=== PATIENT | female | born 1965 | race Caucasian/White ===

== ENCOUNTER 2016-12-05 06:05 | Day surgery (SDC) | payer OTHER ==
[2016-12-05] VITALS (12 sets, daily range): BP systolic 121–163; BP diastolic 74–97; PULSE 59–74; RESP 9–16; O2SAT 94–100
[~2016-12-05] VITALS: Ht 154.9 cm; Wt 64.3 kg
[~2016-12-05 06:05] MED LIST: ACET325C PO; BACITRACIN IRRIGATION ONE; CEFAZOLIN IRRIGATION ONE; CHOL500050 PO; CeFAZolin 2 Gm/50 mL D5W IV Premix IV ONE; DOCU250C2 PO; GENTAMICIN IRRIGATION ONE; LOSA25TA21 PO; MEDR10TA9 PO; NICO1PAT40 TD; OXYC1TAB24 PO; [UNRECOGNIZED DRUG - OTHER] IRRIGATION ONE
[2016-12-05] MEDS ORDERED: HYDROmorphone 2 mg/mL Inj ONE (06:06)
[2016-12-05] MEDS ORDERED: EPHEDrine/NS 5 mg/mL 5 mL Syringe ONE (06:06)
[2016-12-05] MEDS ORDERED: Dexamethasone 4 mg/mL Inj ONE (06:06)
[2016-12-05] MEDS ORDERED: Phenylephrine/NS-PF 100 mCg/mL 5 mL Syringe IVPUSH ONE (06:06)
[2016-12-05] MEDS ORDERED: Propofol 10,000 mCg/mL 20 mL Inj ONE (06:06)
[2016-12-05] MEDS ORDERED: Ondansetron 2 mg/mL 2 mL Inj ONE (06:06)
[2016-12-05] MEDS: Lactated Ringer's 1,000 ML IV SCH ×2 (06:15→08:33)
[2016-12-05] MEDS ORDERED: CeFAZolin Inj 2 gm / 50mL D5W IV ONE (06:36)
[2016-12-05] MEDS ORDERED: NAPR220C11 PO (06:59)
[2016-12-05] MEDS ORDERED: Lactated Ringer's 500 ML IV PRN (07:21)
[2016-12-05] MEDS ORDERED: Lactated Ringer's 1,000 ML IV SCH (07:21)
--- NOTE | 2016-12-05 07:21 | PCM.HPANE ---
Patient Data Date of Service: Dec 05, 2016 Surgeon Admitting Provider: Attending Provider:Ney Frazier MD Primary Care Physician:Sangeetha Fields MD Other Provider:Hank Velasquez Anesthesia Reason for Visit Phx Bilateral Breast Cancer Ht/WT & BMI Height (Feet): 5 Height (Inches): 1.00 Weight (Kilograms): 64.300 Body Mass Index 26.00 Allergies Coded Allergies: No Known Allergies (Verified Allergy, Unknown, 12/04/16) Past Anesthesia History Anesthesia History: Denies:: Anesthesia Reactions, Malignant Hyperthermia Diabetes History Hx Diabetes?: No MRSA MRSA: No Medications Hypertension Medication: Yes (LOSARTAN) Home Meds Incl Beta Yasemin: No Reported Medications Naproxen Sodium (Aleve)220 Mg [id number] Mg PO 12/05/16 oxyCODONE-Acetaminophen 5-325 mg 1 Each Tablet1 Tab PO Q6H PRN For Pain Ref 0 12/04/16 Nicotine (Nicoderm Cq 14 mg/24 hr)1 Each Patch.td241 Each TD DAILY 14 Days Ref 0 12/04/16 Cholecalciferol (Vitamin D3) (Vitamin D3)50,000 Unit Thuzvcb67,000 Unit PO WEEKLY 12/04/16 Discontinued Reported Medications Medroxyprogesterone 10 Mg Joyyzt80 Mg PO DAILY 12/04/16 Docusate Sodium 250 Mg Nhxntqi958 Mg PO DAILY PRN For Constipation Ref 0 12/04/16 Acetaminophen 325 Mg [id number] Mg PO Q4H PRN PRN 12/04/16 Losartan Potassium 25 Mg Yeqhjh51 Mg PO DAILY 07/16/16 Ergocalciferol (Vitamin D2) (Drisdol)50,000 Unit Wdbuoiq34,000 Unit PO Q7D 07/16/16 History History of ENT Problems?: No HEENT History: Denies:: Sinus Problem Other HEENT Pertinent History: S/P RPR NASAL LACERATION Hx of Heart Problems?: No Cardiovascular History: Denies:: Chest Pain Heart Murmur Irregular Heartbeat (PT REPORTS PALPITATIONS) Pacemaker Rheumatic Fever Thrombophlebitis Valvular Heart Disease Hx of Respiratory Problem?: No Respiratory History: Denies:: COPD Chest Surgery (RLL NODULE-STABLE) Dyspnea Emphysema Hemoptysis Pneumonia (HX BRONCHITIS) Tuberculosis Use of C-PAP Machine Hx Neurologic Problems?: Yes Neurological History: Positive for:: Headaches Denies:: Alzheimer's Disease CVA Dementia Dizziness Seizures Hx of GI Problems?: No Gastrointestinal History: Denies:: Cirrhosis Diverticulitis Gastroesphageal Reflux Heartburn Hepatitis (EXPOISURE TO HEP B (IMMUNITY)) Liver Disease (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 (HX MACROMASTIA S/P B/L BREAST BX'S,MASTECTOMY/RECONSTRUCTION -CA) Denies:: Currently ( HX MISSED AB) Endometriosis (THICKENED ENDOMETRIUM) Pelvic Inflammatory Skin History: Positive for:: History Skin Disorders? (SKIN RASHES,NAIL FUNGUS) Denies:: Pressure Ulcers Hx Musculoskeletal Problems?: Yes Musculoskeletal History: Positive for:: Musculoskeletal Trauma (HX LT ANKLE SPRAIN) Denies:: Back Injury (C/OF BACK PAIN) Joint Replacement Hx of Psycho/Social Problems?: Yes Psycho Social History: Positive for:: Anxiety Denies:: Bipolar Disorder Hx Depression Hx Surgeries?: Yes (BILAT BREAST BX'S,BILAT MASTECTOMY W/ RECONSTRUCTION,PAULETTE/ BSO) Hx Any Other Health Problems?: Yes Other History: Positive for:: Cancer (LT BREAST) Denies:: Endocrine Disease Hospitalization Thyroid Disease History Blood Transfusions: Denies:: Blood Transfusions Hx Diabetes: No Other Pertinent History: CASTLEMAN'S DISEASE Hx Alcohol Use: YesHx Substance Use: No Smoking Status: Current Every Day Smoker Have You Smoked inLast 12 mo: Yes (QUIT RECENTLY)Approx How Many Cigarettes/day : 3 C/DAY X 35YRS Stop/Bang S-Snoring: Do You Snore Loudly: No T-Tired: feel tired, fatigued: Yes O-Obsered: Observed not breath: No P-Blood Pressure: treated: No B- Body Mass Index > 35 kg/m2: No A- Age over 50: Yes N- Neck Large Circumference: No G- Gender Male: No JAMESON Total Score: 3 JAMESON Risk Assessment: Low Risk, <3 Yes Risk Assessment Category Category 1A: Patient has history of documented sleep apnea, and HAS NOT received any narcotic, sedative or anesthesia administration during this stay. Category 1B: Patient has history of documented sleep apnea, and HAS received any narcotic , sedative or anesthesia administration during this stay Category 2: Patient has SUSPECTED Obstructive Sleep Apnea, and HAS received any narcotic , sedative or anesthesia administration during this stay. Category 3: Patient has SUSPECTED Obstructive Sleep Apnea and HAS NOT received narcotic, sedative or anesthesia administration during this stay. Category 4: Outpatient in Procedural Areas with known sleep apnea or who screen positive for High Risk via the STOP/BANG questionnaire. Exam Exam Vital Signs Vital Signs Date Time Temp Pulse Resp B/P Pulse Ox O2 Delivery O2 Flow Rate FiO2 12/05/16 06:37 36 65 12 121/80 97 Room Air General Appearance: Alert HEENT/AIRWAY: MP 2 Lungs: Clear to Auscultation Heart: Exam Unremarkable Meds/Labs/Diagnostics Admission Meds Current Medications Lactated Ringer's (Lr) 1,000 ml @ 120 mls/hr Q8H20M IV Last administered on t 06:15; Start 12/05/16 at 05:00; Stop 12/05/16 at 13:19 Plan Impression Patient chart reviewed, patient interviewed and anesthestic plan with risks, benefits, and alternatives discussed, and informed consent obtained. NPO Status: WATER AT 2AM ASA Physical Status: ASA2 Mod Systemic Disease Anesthetic Plan: GA Bene/Risks/Altern/Consents: Yes HP Complete Prior to Induction: Yes Jordi Gallagher MD Dec 05, 2016 07:21
[2016-12-05] MEDS ORDERED: MetoCLOpramide 5 mg/mL 2 mL Inj IVPUSH PRN (07:25)
[2016-12-05] MEDS ORDERED: Dexamethasone 4 mg/mL Inj IVPUSH PRN (07:25)
[2016-12-05] MEDS ORDERED: fentaNYL-PF 50 mCg/mL 2 mL Inj IVPUSH PRN (07:25)
[2016-12-05] MEDS ORDERED: EPHEDrine Sulfate 50 mg/mL Inj IVPUSH PRN (07:25)
[2016-12-05] MEDS ORDERED: Ondansetron 2 mg/mL 2 mL Inj IVPUSH PRN (07:25)
[2016-12-05] MEDS ORDERED: Phenylephrine 10,000 mCg/mL Inj IVPUSH PRN (07:25)
[2016-12-05] MEDS ORDERED: Bupivacaine-MPF 0.5% W/EPI 30 mL Inj INFILTRATE ONE (08:32)
[2016-12-05] MEDS ORDERED: Bacitracin 50,000 unit Inj IRRIGATION ONE (08:33)
[2016-12-05] MEDS: HYDROmorphone 1 mg/mL Inj IVPUSH PRN ×2 (11:20→11:33)
--- NOTE | 2016-12-05 12:32 | PCM.ANEP1 ---
Post Anesthesia Phase 1 PACU Phase 1 Assessment Date of Service: Dec 05, 2016 Vital Signs Vital Signs Date Time Temp Pulse Resp B/P Pulse Ox O2 Delivery O2 Flow Rate FiO2 12/05/16 12:30 36.7 60 12 163/87 100 Room Air 12/05/16 12:15 59 9 138/91 100 OxyMask 4 12/05/16 12:00 59 9 136/97 94 OxyMask 4 12/05/16 11:45 62 10 147/84 97 Room Air 12/05/16 11:30 69 15 146/88 100 Room Air 12/05/16 11:15 68 16 144/91 98 Room Air 12/05/16 11:10 69 15 153/94 100 Room Air 12/05/16 11:05 68 15 149/96 99 Room Air 12/05/16 11:00 36.3 72 13 148/93 100 Room Air 12/05/16 06:37 36 65 12 121/80 97 Room Air Anesthetic Administered: MAC Level of Alertness: Awake, talking DAVIES's with Equal Strength: No Pain: No Nausea or Vomiting: No Oxygen Delivery: Room Air Lungs: Clear to Auscultation Jordi Gallagher MD Dec 05, 2016 12:32
[2016-12-05] MEDS ORDERED: Lactated Ringer's 1,000 ML IV ONE (12:35)
[2016-12-05] MEDS ORDERED: oxyCODONE-Acetamin 5-325 mg Tablet PO ONE (13:03)
--- NOTE | 2016-12-05 13:46 | OP ---
[address] [address] OPERATIVE REPORT PATIENT: RONY CABELLO : 1965 MR#: [id number] ADMIT: 12/05/2016 JOB ID: [id number] DATE OF SURGERY: 12/05/2016 PLASTIC SURGERY OPERATIVE REPORT: PREOPERATIVE DIAGNOSIS(ES): 1. Left posterior shoulder skin lesion. 2. Encounter for breast reconstruction. 3. Previous history of mastectomy and placement of bilateral retropectoral tissue expanders. POSTOPERATIVE DIAGNOSIS(ES): 1. Left posterior shoulder skin lesion. 2. Encounter for breast reconstruction. 3. Previous history of mastectomy and placement of bilateral retropectoral tissue expanders. PROCEDURES PERFORMED: 1. Excision of left posterior shoulder skin lesion, 1.5 cm diameter. 2. Layered closure of left shoulder wound, 3.5 cm. 3. Replacement of bilateral retropectoral tissue expanders for permanent breast prosthesis. 4. Bilateral periprosthetic capsulotomies for shaping. SURGEON: Ney Frazier M.D. TOOLING ENGINEERING TECH: None. ANESTHESIA: General anesthesia with laryngeal mask airway. INDICATIONS: This is a pleasant 51-year-old female, who has had a previous history of left-sided breast cancer and underwent bilateral skin sparing mastectomy with placement of retropectoral tissue expanders. She unfortunately did require adjuvant left-sided radiation therapy. She presents today for a stage 2 implant reconstruction with exchange of her tissue expanders for a permanent breast prosthesis. Incidentally, she was also noted to have a fairly irritated left posterior shoulder skin lesion which we have elected to remove today in the operating room. It is most likely a seborrheic keratosis. ESTIMATED BLOOD LOSS: 100 cc. COMPLICATIONS: None. DRAINS: None. SPECIMENS: 1. Left posterior shoulder skin lesion. 2. Right breast skin. IMPLANTS: Allergan Natrelle Inspira cohesive, round, smooth silicone gel implant. Both implants were style SCX 495 cc implants. Right serial #[id number], left serial #[id number]. ANTIBIOTICS: The patient received parental antibiotics prior to surgery according to protocol. INFORMED CONSENT: I had a thorough discussion with the patient prior to surgery about the risks, benefits, and alternatives to the procedure. In terms of risks, I specifically mentioned bleeding, infection, damage to adjacent structures, need for further procedure, scar, pain, undesired cosmesis, heart attack, stroke or . Despite these risks, she agreed to proceed as planned. DESCRIPTION OF PROCEDURE: After informed consent was obtained and verified, the patient brought to the operating theater and positioned supine upon the operating table. She then had induction of general anesthesia and placement of a laryngeal mask airway. All bony prominences were assessed to make sure they are well padded and sequential compression devices had been in place and functioning prior to induction. The patient was then placed in the right lateral decubitus position using the beanbag positioning device. The left posterior shoulder was then prepped and draped in a standard sterile surgical fashion using a ChloraPrep solution. Preoperative verification and checklist was then done according to protocol. I began by marking the margins of the skin lesion and then marking a superior and inferior Burow triangle to facilitate linear closure, creating a roughly 3.5 cm ellipse. This area was then infiltrated with 0.25% bupivacaine with epinephrine. Excision of the lesion was then done with a #15 scalpel. Wide undermining was done to facilitate a tension-free closure. Hemostasis was achieved using monopolar cautery. The wound was then closed using 4-0 Monocryl in an interrupted deep dermal fashion and a running intradermal fashion. Dressings were done including Mastisol, Steri-Strips, and a nylon dressing. The patient was then placed in the supine position and the arms were abducted 80 degrees and secured to padded arm boards. Again, all bony prominences were assessed to make sure they were well-padded. The chest was then prepped and draped in a standard sterile surgical fashion using a ChloraPrep solution. I began on the right side, reopening the previous incision site using a #15 scalpel. Superior and inferior skin flaps were elevated for approximately 3 cm. The interval between the previous serratus flap and the lateral border of the pectoralis major was identified and opened for approximately 4 cm using cautery. The programming coordinator was easily visualized subjacent to this and was ruptured and the fluid aspirated. The anchoring tab sutures were removed and the programming coordinator was immediately removed from the pocket. It was completely adherent to the adjacent soft tissue as expected with a texture device. A superior capsulotomy was then done to facilitate placement of the implant using electrocautery. This was carried circumferentially as well. At first a style SCX 545 cc Sizer was placed in the pocket and was deemed to be too big for the pocket, and per my discussion with the patient preoperatively. We then elected to use the 495 cc Sizer which was a much more appropriate and proportionate prosthesis. The capsule was provisionally closed using a running 2-0 PDS suture and the skin was provisionally closed using deng. I then turned my attention toward the contralateral breast where again, the incision was opened using a #10 scalpel. The skin flaps were elevated and the capsule was opened similar to the other side. The programming coordinator was removed similarly. Given that the left side had been radiated, the implant pocket was expectedly tighter and more thorough shaping capsulotomies were done. I began with a low circumferential capsulotomy. The retropectoral plane was then developed superiorly. Two inferior radial capsulotomies were performed to allow for a more round appearance to the inferior pole. The same style SCX 495 cc Sizer was placed in the pocket and it became clear that more release was needed along the lateral pocket. The Sizer was removed and this was performed using cautery. Once we had deemed there to be reasonable symmetry between the two sides, the left-sided Sizer was removed, the implant pocket was irrigated and hemostasis was assured. The pocket was also infiltrated with 0.25% bupivacaine with epinephrine. Gloves were changed, the skin was re-prepped using Betadine, and a style SCX 495 cc permanent implant was placed using a minimal touch technique. The capsule was closed using 2-0 PDS in an interrupted buried ombwwp-hj-mliat fashion followed by closure of the skin using 3-0 PDS in an interrupted deep dermal fashion and 3-0 Stratifix in a running intradermal fashion. I then turned my attention back toward the right side where all of the incisions and capsule were reopened, the Sizer was removed, the pocket was irrigated with antibiotic solution and hemostasis was assured followed by infiltration with bupivacaine with epinephrine. The right-sided implant was prepared similarly by bathing in triple antibiotic solution and placed after gloves were changed and the skin was resterilized. The capsule was closed in a similar fashion using 2-0 PDS. The patient had been sat up multiple times to examine for symmetry during this. It had become clear preoperatively and during surgery that there was excess skin along the inferior pole of the right breast that would have to be excised. We decided to remove the laxity along the previous incision along the central breast transversely which would lengthen it both medially and laterally. This was marked and the superior portion of the incision was made and a tailor tacking technique was used to adjust the tension. The large ellipse of skin was removed with a #10 blade for initial incision followed by monopolar electrocautery. Hemostasis was achieved both respectively and when needed using cautery. Closure of this was then done using 3-0 Vicryl in the deep dermal fashion and 3-0 Stratifix in a running intradermal fashion. The incisions were dressed with Dermabond skin adhesive and Steri-Strips followed by ABD pads and a postoperative bra. The patient tolerated the procedure well and no complications were noted. Sponge, needle, and instrument counts were correct at the end of the case. Postoperative debriefing was done according to protocol. DISPOSITION: The patient was successfully extubated and taken to the postanesthesia recovery area with normal stable vital signs. PLAN: The patient followup in clinic in 1-2 weeks' time for routine postoperative assessment.
--- NOTE | 2016-12-08 10:19 | PCM.ANEP2 ---
Post Anesthesia Evaluation ASA/CMS Post Anesthesia VS in Patient's Normal Range?: Yes Resp Stable; Airway Patent?: Yes CV Function & Hydration Stable: Yes Mental Status Recovered?: Yes Pain control Satisfactory?: Yes N/V Control Satisfactory?: Yes Jordi Gallagher MD Dec 08, 2016 10:19
--- NOTE | 2016-12-09 08:23 | PATH ---
SURGICAL PATHOLOGY Attending Physician:Ney Frazier MD CASE STATUS: Signed Out PATIENT NAME: RONY RAMOS PID: [id number] : 1965 DATE COLLECTED:12/05/2016 20:38 SPECIMEN: 1: Skin, biopsy 2: Skin, biopsy CLINICAL HISTORY: PERSONAL HISTORY BILATERAL BREAST CANCER 1). LEFT POSTERIOR SHOULDER LESION 2). RIGHT BREAST SKIN FINAL DIAGNOSIS: 1. Skin Excision, Left Posterior Shoulder: Seborrheic keratosis. 2. Right Breast Skin: Negative for malignancy. ICD10 L82.1 GROSS DESCRIPTION: 1). The specimen is received in formalin, labeled with the patient's name and "left posterior shoulder lesion", and consists of a 2.9 x 1.2 cm, unoriented israel-brown skin ellipse excised to a depth of 0.6 cm. A 1.4 x 1.1 x 0.5 cm, raised, israel-brown verrucoid lesion is present on the skin surface. The lesion extends to the peripheral resection margins and is 0.8 cm from the nearest tip. The resection margin is inked green and the specimen is entirely submitted as follows: 1A-shave tips; 1Z-4O-diqnrdmpt of specimen, serially sectioned. 2). The specimen is received in formalin, labeled with the patient's name and "right breast skin", and consists of two strips of israel-brown skin and subcutaneous tissue measuring 12.7 x 2.7 cm excised to a depth of 1.3 cm and 17.1 x 2.1 cm excised to a depth of 1.1 cm. No abnormalities are identified on the skin surface. The specimen is serially sectioned to reveal a israel-brown, lobulated cut surface without gross lesions. Fitter Hand sections are submitted in cassettes 2A-2E. (SCOTT:[id number]) ICD-9 CODES: CPT CODES: 1: 01686 2: 16457 Electronically Signed Out Yannick Poole MD [facility] Pathology [facility], [place] [address] Technical component performed at [facility], [address] [place] [address] Ave[address], [place], [address]
== END 2016-12-05 23:59 | disposition home or self-care (01) ==
LOC: SAS 06:05
PROVIDERS: ATTEND Plastic Surgery
DX: Z85.3 Personal history of malignant neoplasm of breast (principal); Z90.13 Acquired absence of bilateral breasts and nipples; L82.1 Other seborrheic keratosis; I10 Essential (primary) hypertension
CPT/HCPCS: 11402; 11970; 12032; C1789; J0690; J1100; J1170; J1200; J1580; J2175; J2250; J2370; J2405; J3010; J7120